=== PATIENT | male | born 2005 | race Asian ===

== ENCOUNTER 2023-06-26 11:55 | Emergency (ER) | payer OTHER ==
[~2023-06-26] VITALS: Ht 172.7 cm; Wt 83.9 kg
[2023-06-26 12:12] VITALS: BP 145/79; PULSE 99; RESP 17; TEMP 97.4; O2SAT 99
[2023-06-26 12:16] LABS: BASOPHILS % (AUTO) 0.3 % (0.0-2.0); EOSINOPHILS # (AUTO) 0.1 K/uL (0-0.4); EOSINOPHILS % (AUTO) 2.3 % (0.0-4.0); HEMATOCRIT 42.5 % (36-52); HEMOGLOBIN 14.3 g/dL (12.0-18.0); LYMPHOCYTES # (AUTO) 1.4 K/uL (2.0-11.5); LYMPHOCYTES % (AUTO) 24.1 % (20.5-51.1); MEAN CORPUSCULAR HEMOGLOBIN 29 pg (27-31); MEAN CORPUSCULAR HGB CONC 34 g/dL (33-37); MEAN CORPUSCULAR VOLUME 85.4 fL (80-94); MONOCYTES # (AUTO) 0.4 K/uL (0.8-1.0); MONOCYTES % (AUTO) 6.2 % (1.7-9.3); NEUTROPHILS % (AUTO) 67.1 % (42.2-75.2); PLATELET COUNT (AUTO) 368 K/uL (140-450); RED BLOOD CELL COUNT(AUTO) 4.98 MIL/uL (4.20-6.10); RED CELL DISTRIBUTION WIDTH 12.6 % (11.6-13.7)
[2023-06-26 12:30] LABS: ALANINE AMINOTRANSFERASE 31 U/L (12-78); ALBUMIN 3.8 g/dL (3.4-5.0); ALKALINE PHOSPHATASE 84 U/L (50-136); ASPARTATE AMINOTRANSFERASE 16 U/L (15-37); CALCIUM 8.6 mg/dL (8.5-10.1); CHLORIDE 104 mmol/L (98-107); GFR ARICAN-AMERICAN 123 mL/min (>90); GFR NON ARICAN-AMERICAN 101 mL/min (>90); GLUCOSE 123 mg/dL (74-106); SODIUM SERUM 141 mmol/L (136-145); TOTAL BILIRUBIN 0.4 mg/dL (0.0-1.0); TOTAL PROTEIN, SERUM 7.8 g/dL (6.4-8.2); UREA NITROGEN, BLOOD 11 mg/dL (7-18)
[2023-06-26 12:31] LABS: ACETAMINOPHEN < 0.5 ug/ml (10-30); ALCOHOL, BLOOD < 3 mg/dL (<10); SALICYLATE < 2.8 mg/dL (2.8-20.0)
[2023-06-26 12:43] VITALS: O2SAT 99
== END 2023-06-26 15:00 | disposition home or self-care (01) ==
LOC: MED 11:55
DX: R46.89 Other symptoms and signs involving appearance and behavior (principal); F29 Unspecified psychosis not due to a substance or known physiological condition; F84.0 Autistic disorder; Z20.822 Contact with and (suspected) exposure to COVID-19; Z02.89 Encounter for other administrative examinations
CPT/HCPCS: 36415; 80053; 85025; 87426; 87635; 96360; 99285; C9803; G0480; G0482; 99284

== ENCOUNTER 2023-10-22 22:50 | Emergency (ER) | payer OTHER ==
[~2023-10-22] VITALS: Ht 165.1 cm; Wt 81.6 kg
[2023-10-22 22:54] VITALS: BP 145/106; PULSE 102; RESP 20; TEMP 97.8; O2SAT 98
[2023-10-22 23:19] VITALS: O2SAT 99
[2023-10-23] LABS: BASOPHILS % (AUTO) 0.2 % (0.0-2.0); EOSINOPHILS # (AUTO) 0.1 K/uL (0-0.4); HEMATOCRIT 44.3 % (36-52); HEMOGLOBIN 15.3 g/dL (12.0-18.0); LYMPHOCYTES # (AUTO) 1.6 K/uL (2.0-11.5); LYMPHOCYTES % (AUTO) 22.2 % (20.5-51.1); MEAN CORPUSCULAR HEMOGLOBIN 30 pg (27-31); MEAN CORPUSCULAR HGB CONC 35 g/dL (33-37); MEAN CORPUSCULAR VOLUME 85.9 fL (80-94); MONOCYTES # (AUTO) 0.6 K/uL (0.8-1.0); MONOCYTES % (AUTO) 8.7 % (1.7-9.3); NEUTROPHILS # (AUTO) 4.8 K/uL (1.8-7.7); NEUTROPHILS % (AUTO) 66.9 % (42.2-75.2); PLATELET COUNT (AUTO) 347 K/uL (140-450); RED BLOOD CELL COUNT(AUTO) 5.16 MIL/uL (4.20-6.10); RED CELL DISTRIBUTION WIDTH 13.4 % (11.6-13.7); WHITE BLOOD COUNT (AUTO) 7.2 K/uL (4.5-11.0)
[2023-10-23 00:48] LABS: ANION GAP 15.2 (8-16); CALCIUM 9.3 mg/dL (8.5-10.1); CREATININE 0.8 mg/dL (0.6-1.3); POTASSIUM 4.2 mmol/L (3.5-5.1)
[2023-10-23 01:05] LABS: ALANINE AMINOTRANSFERASE 30 U/L (12-78); ALBUMIN 4.3 g/dL (3.4-5.0); ALCOHOL, BLOOD < 3 mg/dL (<10); ALKALINE PHOSPHATASE 93 U/L (50-136); ASPARTATE AMINOTRANSFERASE 18 U/L (15-37); BILIRUBIN,DIRECT 0.1 mg/dL (0.0-0.3); TOTAL BILIRUBIN 0.2 mg/dL (0.0-1.0)
[2023-10-23 01:06] LABS: AMPHETAMINE, URINE NEGATIVE ng/ml (NEG <=1000); BARBITURATE, URINE NEGATIVE ng/ml (NEG <=200); BENZODIAZEPINE, URINE NEGATIVE ng/mL (NEG <=200); CANNABINOID, URINE NEGATIVE ng/mL (NEG <=50); COCAINE, URINE NEGATIVE ng/mL (NEG <=300); OPIATE, URINE NEGATIVE ng/mL (NEG <=2000); PHENCYCLIDINE SCREEN,URINE NEGATIVE ng/mL (NEG <=25)
[2023-10-23 01:08] LABS: SALICYLATE < 2.8 mg/dL (2.8-20.0)
[2023-10-23 11:01] VITALS: BP 130/80; PULSE 95; RESP 18; TEMP 97.7; O2SAT 96
== END 2023-10-23 11:01 | disposition home or self-care (01) ==
LOC: MED 22:50
DX: Z00.8 Encounter for other general examination (principal); F84.0 Autistic disorder
CPT/HCPCS: 36415; 80048; 80076; 80305; 85025; 93005; 99285; G0480; G0482